=== PATIENT | female | born 1985 | race Caucasian/White ===

== ENCOUNTER 2017-05-18 15:23 | Outpatient (CLI) | payer MEDICAID ==
[~2017-05-18] VITALS: Ht 139.7 cm; Wt 60.5 kg
[2017-05-18 15:48] VITALS: BP 97/54; PULSE 94; RESP 20; Ht 139.7 cm; Wt 60.5 kg
[2017-05-18] MEDS ORDERED: LACTATED RINGER'S 1,000 ML IV ONE (16:00)
[2017-05-18] MEDS ORDERED: LACTATED RINGER'S 1,000 ML IV SCH (16:17)
--- NOTE | 2017-05-18 16:37 | HP ---
Date/Time of Note Date/Time of Note DATE: 05/18/17 TIME: 16:35 OB - History Hx of Present Free Text/Dictation 34+ : 1 Para: 0 Care: Good Care Ultrasounds: Normal mid trimester US Obstetrical Complications: None Medical Complications: None Past Family/Social History * Past Medical, Surgical, Family and Obstetric Histories reviewed from chart. OB Admission Exam Vital Signs Vital Signs Vital Signs Date Time Temp Pulse Resp B/P Pulse Ox O2 Delivery O2 Flow Rate FiO2 05/18/17 15:48 98.6 94 20 97/54 97 Room Air Physical Exam Abdomen: WNL Cervical Dilatation: None Effacement: 0% Station: Ballot[place] Membranes: Intact Heart Rate: 140's Accelerations: Accelerations Present Decelerations: No Decelerations Varibility: Marked Contractions on Admission: >10 Minutes Apart OB Assessment/Plan Reason for admission: observation Plan: Expectant Management Other plan: 24 hr observation IV HydrationType and screen KB ,CBC BPP placenta Continuous monitoring PRINCE SUGGS M.D. May 18, 2017 16:37
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
[2017-05-18 17:29] LABS: ADD SCAN DIFF NO
[2017-05-18 17:32] LABS: BASOPHILS % 0.3 % (0.0-2.0); EOSINOPHILS # 0.2 10^3/ul (0.0-0.5); HEMOGLOBIN 11.2 g/dl (12.0-16.0); LYMPHOCYTES # 2.4 10^3/ul (0.8-2.9); LYMPHOCYTES % 23.3 % (15.0-51.0); MEAN CORPUSCULAR HEMOGLOBIN 31.6 pg (29.0-33.0); MEAN CORPUSCULAR VOLUME 90.4 fl (82.0-101.0); MEAN PLATELET VOLUME 10.6 fl (7.4-10.4); MONOCYTE # 0.6 10^3/ul (0.3-0.9); MONOCYTES % 6.1 % (0.0-11.0); NEUTROPHIL # 6.9 10^3/ul (1.6-7.5); NEUTROPHILS % 67.7 % (39.0-77.0); PLATELET COUNT 282 10^3/UL (140-415); RED BLOOD COUNT 3.54 10^6/ul (4.20-5.40); RED CELL DISTRIBUTION WIDTH 12.7 % (11.5-14.5); WHITE BLOOD COUNT 10.2 10^3/ul (4.8-10.8)
[2017-05-18] MEDS ORDERED: PRENAT PO (18:13)
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
== END 2017-05-18 19:27 | disposition home or self-care (01) ==
LOC: L-D 15:23 → OBT 15:23
PROVIDERS: ATTEND Obstetrics & Gynecology
DX: O62.9 Abnormality of forces of labor, unspecified (principal); Z3A.34 34 weeks gestation of pregnancy
CPT/HCPCS: 76818; 85025; 85460; 86850; 86900; 86901; J7120; Z7500; G0463

== ENCOUNTER 2017-06-15 06:20 | Outpatient (CLI) | payer MEDICAID ==
[~2017-06-15] VITALS: Ht 147.3 cm; Wt 61.6 kg
[~2017-06-15 06:20] MED LIST: PRENAT PO
[2017-06-15 06:39] VITALS: Ht 147.3 cm; Wt 61.6 kg
[2017-06-15 06:40] VITALS: BP 100/63; PULSE 69; RESP 18
--- NOTE | 2017-06-15 09:25 | CONS ---
Date/Time of Note Date/Time of Note DATE: 06/15/17 TIME: 09:16 Consultation Date/Type/Reason Admit Date/Time June 15, 2017 OB triage consult Reason for Consultation This patient is 32 years old 1 para 0 with estimated date of confinement of June 24, 2017 which makes her 38 weeks and 5 days. She came to triage complaining of contractions since early in the morning.. On examination she is a well-developed well-nourished woman in her late . Her general vital signs are basically normal with blood pressure of 106/63, pulse rate 69, respiration 18 temperature 97.8, On examination of the abdomen ,she does not have much of a contraction, fundus is soft ,fetus in vertex presentation . heart tone is normal heart tracing is reactive with good variability occasional acceleration no deceleration. Constitutional: No chills, No diaphoresis, No disoriented, No febrile, No improved, No no complaints, No other, No poor po, No requiring IVF, No requiring O2 Eyes: No discharge, No no complaints, No other, No pain, No redness, No visual change ENT: No bleeding, No congestion, No discharge, No dysphagia, No no complaints, No other, No pain, No sore throat Respiratory: No cough, No no complaints, No other, No pain, No pleuritic pain, No shortness of breath, No sputum, No wheezing Cardiovascular: No chest pain, No edema, No lightheadedness, No no complaints, No orthopenea, No other, No palpitations, No paroxysmal nocturnal dyspnea Gastrointestinal: other (On pelvic examination there was no bleeding slight brown discharge the cervix was 2 cm 80% effaced head at -2 station membrane was intact), No blood, No constipation, No decreased appetite, No diarrhea, No flatus, No nausea, No no complaints, No pain, No passing stool, No vomiting Genitourinary: No bleeding, No discharge, No dysuria, No flank pain, No hematuria, No no complaints, No other Musculoskeletal: No back pain, No bone/joint pain, No neck pain, No no complaints, No other, No restricted range of motion, No swelling Skin: No bruising, No erythema, No laceration, No no complaints, No other, No pruritis, No rash, No skin lesions Neurologic: No confusion, No dizziness, No focal-weakness, No headache, No no complaints, No other, No seizure, No syncope Endocrine: No dry skin, No no complaints, No other, No polydypsia, No polyuria , No temp intolerance Additional Comments Patient was kept in the hospital for about 2 hours and pelvic exam was repeated after 2 hours with the same finding of 2 cm 80% and -2 station. Disposition: patient was informed that she is not in labor or at least not in active labor and she will be discharged home with instruction to rest at home and return in the delivery room in case of further contractions ,vaginal bleeding or rupture of membrane . Otherwise she will attend her building pressure washer's office for continuation of her care. Final diagnosis of false labor Social History Smoking Status: Never smoker Exam/Review of Systems Vital Signs Vitals Vital Signs Date Time Temp Pulse Resp B/P Pulse Ox O2 Delivery O2 Flow Rate FiO2 06/15/17 06:40 97.8 69 18 100/63 Room Air FAB KIM MD Jun 15, 2017 09:25
== END 2017-06-15 09:15 | disposition home or self-care (01) ==
LOC: OBT 06:20 → L-D 06:21 → OBT 09:15
PROVIDERS: ATTEND Obstetrics & Gynecology
DX: O47.1 False labor at or after 37 completed weeks of gestation (principal); Z3A.38 38 weeks gestation of pregnancy
CPT/HCPCS: G0463

== ENCOUNTER 2017-06-16 01:30 | Inpatient (IN) | payer MEDICAID ==
[~2017-06-16] VITALS: Ht 142.2 cm; Wt 60.9 kg
[2017-06-16 02:03] VITALS: Ht 142.2 cm; Wt 60.9 kg
[2017-06-16 02:05] VITALS: BP 114/68; PULSE 78; RESP 18
[2017-06-16] MEDS ORDERED: LACTATED RINGER'S 1,000 ML IV SCH (02:27)
[2017-06-16] MEDS ORDERED: BUTORPHANOL 2 MG INJ IV PRN (02:30)
[2017-06-16] MEDS ORDERED: IBUPROFEN 600 MG TAB PO PRN (02:30)
[2017-06-16] MEDS ORDERED: AMPICILLIN 2 GM/NS (PMX) 100 ML IV ONE (02:30)
[2017-06-16] MEDS ORDERED: ACETAMINOPHEN/CODEINE #3 TAB PO PRN ×3 (02:30→14:30)
[2017-06-16] MEDS ORDERED: LIDOCAINE 1% (MPF) 30 ML INJ INJ PRN (02:30)
[2017-06-16] MEDS ORDERED: METHYLERGONOVINE 0.2 MG INJ IM PRN (02:30)
[2017-06-16] MEDS ORDERED: CARBOPROST 250 MCG INJ IM PRN (02:30)
[2017-06-16] MEDS ORDERED: OXYTOCIN 30 UNITS/LR 500 ML IV PRN (02:30)
[2017-06-16] MEDS ORDERED: OXYTOCIN 30 UNITS/LR 500 ML IV SCH ×3 (02:30→08:30)
[2017-06-16] MEDS ORDERED: MISOPROSTOL 200 MCG TAB PR PRN (02:30)
--- NOTE | 2017-06-16 02:45 | HP ---
Date/Time of Note Date/Time of Note DATE: 06/16/17 TIME: 02:37 OB - History Hx of Present Free Text/Dictation 32y.o primigravida at 38w6d came to triage with c/o uterine contractions for 2days with intact membrane. VE 2cm 100% -2 with bulging bag pain level is 9/10 EFM shows U.C 2-4min with reactive strips record is not available. admitted for expectant management, Chief Complaint: U.C Estimated Due Date: Jun 15, 2017 : 2 Para: 1 Spontaneous : 0 Therapeutic : 0 Care: Other Ultrasounds: Other Obstetrical Complications: None Medical Complications: None Past Family/Social History * Past Medical, Surgical, Family and Obstetric Histories reviewed from chart. Blood Type: Unknown Rubella: unknown RPR/VDRL: Unknown GBS Status: Unknown HBsAG: Unknown OB Admission Exam Vital Signs Vital Signs Vital Signs Date Time Temp Pulse Resp B/P Pulse Ox O2 Delivery O2 Flow Rate FiO2 06/16/17 02:05 98.6 78 18 114/68 Room Air Physical Exam HEENT: WNL Heart: Rhythm Normal Lungs: Clear, Equal Abdomen: WNL Extremities: Normal Reflexes: Normal Cervical Dilatation: 2cm Effacement: 75% Station: -3 Membranes: Intact Amniotic Fluid: Unevaluable Heart Rate: 140's Accelerations: Accelerations Present Decelerations: No Decelerations Varibility: Moderate Contractions on Admission: < 5 Minutes Apart Intensity: Mild OB Assessment/Plan Other Assessment: IUP 38w6d in labor Plan: Expectant Management SWETHA MARTINEZ MD Jun 16, 2017 02:45
[2017-06-16] MEDS ORDERED: LACTATED RINGER'S 1,000 ML IV PRN (03:00)
--- NOTE | 2017-06-16 03:43 | TRIAGE ---
OB Triage Datetime Report Generated by CPN: 06/16/2017 03:43 Datetime: 06/16/2017 03:28 Pain Assessment Pain Scale: 10 Pain Presence: Intermittent Pain Type: Contraction Pain Location: Abdomen; Back Pain Goal: 2 Pain Relief Measures: Comfort Measures Datetime: 06/16/2017 02:55 Assessment Type: Admission Assessment Vaginal Bleeding: Normal Show Maternal Assessment Level of Consciousness: Fully Conscious DTR's/Clonus: DTRs 2+; No Clonus Headache: Denies Blurred Vision: No Respiratory Effort: Unlabored; Regular Rhythm; Equal Expansion Breath Sounds, Left: Clear and Equal Breath Sounds, Right: Clear and Equal Nausea/Vomiting: Denies RUQ Epigastric Pain: Denies Lower Extremities Edema: None Degree: None Upper Extremities Edema: None Degree: None Facial Edema: None Fall Risk Assessment History of Falling: (0) No Secondary Diagnosis: (0) No Ambulatory Aid: (0) Bedrest/Nurse Assist IV Therapy: (0) No Gait: (0) Normal/Bedrest/Immobile Mental Status: (0) Oriented to Own Ability Fall Score: 0 Fall Risk Score Definition: No Risk: No action required Pain Assessment Pain Scale: 10 Pain Presence: Intermittent Pain Type: Contraction Pain Location: Abdomen; Back Pain Goal: 2 Membrane Status: Bulging Datetime: 06/16/2017 02:20 Stage of : OB Triage Labor Evaluation Frequency: 2-3 Monitor Mode: External Duration (sec)2399: 90-110 Quality: Moderate Pattern: Normal: <= 5 Contractions in 10 Minutes Heart Rate FHR Baseline Rate: 140 Monitor Mode: External US FHR Baseline Changes: No Baseline Change Variability: Moderate 6-25 bpm Accelerations: 15X15 Decelerations: None Category: Category I Datetime: 06/16/2017 02:15 Stage of : OB Triage Datetime: 06/16/2017 01:55 Vaginal Exam Dilatation (cms): 2.0 Effacement (%): 100 Station: -2 Exam By: Jeremiah Sheppard RN Vaginal Bleeding: Normal Show Cervix, Consistency: Soft Cervix, Position: Anterior Datetime: 06/16/2017 01:51 Assessment Type: Triage Maternal Assessment Level of Consciousness: Fully Conscious DTR's/Clonus: DTRs 2+; No Clonus Headache: Denies Blurred Vision: No Respiratory Effort: Unlabored; Regular Rhythm; Equal Expansion Breath Sounds, Left: Clear and Equal Breath Sounds, Right: Clear and Equal Nausea/Vomiting: Denies RUQ Epigastric Pain: Denies Lower Extremities Edema: None Degree: None Upper Extremities Edema: None Degree: None Facial Edema: None Fall Risk Assessment History of Falling: (0) No Secondary Diagnosis: (0) No Ambulatory Aid: (0) Bedrest/Nurse Assist IV Therapy: (0) No Gait: (0) Normal/Bedrest/Immobile Mental Status: (0) Oriented to Own Ability Fall Score: 0 Fall Risk Score Definition: No Risk: No action required Pain Assessment Pain Scale: 9 Pain Presence: Intermittent Pain Type: Cramping; Contraction Pain Location: Abdomen Pain Goal: 3 Pain Relief Measures: Comfort Measures Pain Assessment Comments: Jeremiah Sheppard RN Datetime: 06/16/2017 01:38 Time of Arrival: 06/16/2017 01:23 EGA: 38.6 Arrived By: Wheelchair Arrived From: Home Chief Complaint: UC's X2 days (Annotations: Data stored by N on behalf of user) Movement: Present Contractions: Regular Time Contractions Began: 06/14/2017 09:00 Patient Complaints: Contractions Time Provider Notified: 06/16/2017 02:15 Provider Notified: Dr Mcclure Initial Plan: EFM X2, SVE Datetime: 06/15/2017 09:06 Labor Evaluation Frequency: 2-5 Monitor Mode: External Duration (sec)2399: 60-180 Quality: Mild Pattern: Normal: <= 5 Contractions in 10 Minutes Resting Tone [place]: Relaxed Heart Rate FHR Baseline Rate: 135 Monitor Mode: External US Variability: Moderate 6-25 bpm Accelerations: 15X15 Decelerations: None Category: Category I Datetime: 06/15/2017 09:04 Vaginal Exam Dilatation (cms): 2.0 Effacement (%): 90 Station: -3 Exam By: ogbodu rn Datetime: 06/15/2017 08:40 Maternal Assessment Level of Consciousness: Fully Conscious DTR's/Clonus: DTRs 2+; No Clonus Headache: Denies Blurred Vision: No Respiratory Effort: Unlabored; Regular Rhythm; Equal Expansion Breath Sounds, Left: Clear and Equal Breath Sounds, Right: Clear and Equal Nausea/Vomiting: Denies RUQ Epigastric Pain: Denies Lower Extremities Edema: Bilateral Lower Extremities Degree: None Upper Extremities Edema: None Degree: None Facial Edema: None Fall Risk Assessment History of Falling: (0) No Secondary Diagnosis: (0) No Ambulatory Aid: (0) Bedrest/Nurse Assist IV Therapy: (0) No Gait: (0) Normal/Bedrest/Immobile Mental Status: (0) Oriented to Own Ability Fall Score: 0 Fall Risk Score Definition: No Risk: No action required Datetime: 06/15/2017 08:04 Labor Evaluation Frequency: 3-5 Monitor Mode: External Duration (sec)2399: 60-120 Quality: Moderate Pattern: Normal: <= 5 Contractions in 10 Minutes Resting Tone [place]: Relaxed Heart Rate FHR Baseline Rate: 145 Monitor Mode: External US Variability: Moderate 6-25 bpm Accelerations: 15X15 Decelerations: None Category: Category I Comments: nst reactive for gestational age Datetime: 06/15/2017 07:00 Labor Evaluation Frequency: 2-6 Monitor Mode: External Duration (sec)2399: 50-140 Quality: Mild Pattern: Normal: <= 5 Contractions in 10 Minutes Resting Tone [place]: Relaxed Heart Rate FHR Baseline Rate: 135 Monitor Mode: External US Variability: Moderate 6-25 bpm Accelerations: 15X15 Decelerations: None Category: Category I Datetime: 06/15/2017 06:53 Vaginal Exam Dilatation (cms): 2.0 Effacement (%): 80 Station: -2 Exam By: BE Membrane Status: Bulging Vaginal Bleeding: None Cervix, Consistency: Soft Cervix, Position: Midposition Presentation 'A': Cephalic Datetime: 06/15/2017 06:37 Time of Arrival: 06/15/2017 06:15 EGA: 38.5 Arrived By: Ambulatory Arrived From: Home Chief Complaint: CONTRACTIONS Movement: Present Contractions: Regular Time Contractions Began: 06/15/2017 00:00 Contractions: Q5MIN Rupture of Membranes: Denies Vaginal Bleeding: None Vaginal Discharge: Denies Recent Sexual Intercouse: Denies Abdominal Trauma: Not Applicable Patient Complaints: Contractions Time Provider Notified: 06/15/2017 07:05 Provider Notified: MICHELLE Initial Plan: CEFM, SVE Datetime: 06/15/2017 06:36 Stage of : OB Triage Temperature Route: Oral Pain Assessment Pain Scale: 6 Pain Presence: Intermittent Pain Type: Cramping; Contraction Pain Location: Abdomen Datetime: 06/15/2017 06:34 Assessment Type: Triage Maternal Assessment Level of Consciousness: Fully Conscious DTR's/Clonus: DTRs 2+; No Clonus Headache: Denies Blurred Vision: No Respiratory Effort: Unlabored; Regular Rhythm; Equal Expansion Breath Sounds, Left: Clear and Equal Breath Sounds, Right: Clear and Equal Nausea/Vomiting: Denies RUQ Epigastric Pain: Denies Lower Extremities Edema: None Degree: None Upper Extremities Edema: None Degree: None Facial Edema: None Fall Risk Assessment History of Falling: (0) No Secondary Diagnosis: (0) No Ambulatory Aid: (0) Bedrest/Nurse Assist IV Therapy: (0) No Gait: (0) Normal/Bedrest/Immobile Mental Status: (0) Oriented to Own Ability Fall Score: 0 Fall Risk Score Definition: No Risk: No action required Datetime: 05/18/2017 16:26 EGA: 34.5
[2017-06-16 04:03] LABS: INR 0.86; PROTIME 11.7 Sec (12.2-14.2); PT RATIO 0.9
[2017-06-16 04:04] LABS: PARTIAL THROMBOPLASTIN TIME 26.6 Sec (25.0-35.0)
[2017-06-16 04:08] LABS: BASOPHILS % 0.2 % (0.0-2.0); EOSINOPHILS # 0.2 10^3/ul (0.0-0.5); HEMATOCRIT 34.9 % (37.0-47.0); HEMOGLOBIN 11.7 g/dl (12.0-16.0); LYMPHOCYTES # 2.3 10^3/ul (0.8-2.9); LYMPHOCYTES % 14.7 % (15.0-51.0); MEAN CORPUSCULAR HEMOGLOBIN 29.5 pg (29.0-33.0); MEAN CORPUSCULAR HGB CONC 33.5 g/dl (32.0-37.0); MEAN CORPUSCULAR VOLUME 87.9 fl (82.0-101.0); MEAN PLATELET VOLUME 12.2 fl (7.4-10.4); MONOCYTE # 0.9 10^3/ul (0.3-0.9); MONOCYTES % 5.8 % (0.0-11.0); NEUTROPHIL # 12.1 10^3/ul (1.6-7.5); NEUTROPHILS % 77.3 % (39.0-77.0); PLATELET COUNT 301 10^3/UL (140-415); RED BLOOD COUNT 3.97 10^6/ul (4.20-5.40); RED CELL DISTRIBUTION WIDTH 12.8 % (11.5-14.5); WHITE BLOOD COUNT 15.6 10^3/ul (4.8-10.8)
[2017-06-16 04:35] LABS: ADD UMIC YES; UR ASCORBIC ACID NEGATIVE (NEGATIVE); UR BACTERIA FEW /HPF (NONE SEEN); UR BILIRUBIN (Dip) NEGATIVE (NEGATIVE); UR BLOOD (Dip) 2+ mg/dL (NEGATIVE); UR CLARITY CLEAR (CLEAR); UR COLOR YELLOW (YELLOW); UR GLUCOSE (Dip) NEGATIVE (NEGATIVE); UR KETONES (Dip) NEGATIVE (NEGATIVE); UR LEUKOCYTE ESTERASE (Dip) TRACE Leu/ul (NEGATIVE); UR NITRITE (Dip) NEGATIVE (NEGATIVE); UR RBC 3 /HPF (0-5); UR SPECIFIC GRAVITY (Dip) 1.017 (1.003-1.030); UR SQUAMOUS EPITHELIAL CELL FEW /HPF (FEW); UR TOTAL PROTEIN (Dip) NEGATIVE (NEGATIVE); UR UROBILINOGEN (Dip) NEGATIVE (NEGATIVE)
[2017-06-16] MEDS ORDERED: AMPICILLIN 1 GM/NS (PMX) 50 ML IV SCH (06:30)
[2017-06-16] MEDS ORDERED: MINERAL OIL LIGHT 10 ML VIAL TOP ONE (11:00)
--- NOTE | 2017-06-16 12:40 | LDN ---
Date/Time of Note Date/Time of Note DATE: 06/16/17 TIME: 12:36 Delivery Summary Normal spontaneous vaginal delivery of a baby boy from OA position shoulders delivered without any difficulty rest of the baby's body follow placenta is spontaneous expulsion inspected complete patient sustained 1 cm vaginal laceration repaired with 4-0 chromic catgut estimated blood loss 250 mL Weeks of Gestation 38 weeks and 6 days Placenta Delivered: Spontaneously Meconium: none Episiotomy: No Laceration repair: Small first-degree perineal laceration 1 cm repaired with 4-0 chromic catgut Anesthesia type: Local Estimated blood loss: 25 Sponge & Needle done & correct: Yes All needle counts correct: Yes Any foreign bodies felt in the: No Problems: Delivery Information Sex Sex: male Apgars 1 Minute: 7 5 Minute: 9 Suctioning Nose & mouth suctioned at jacob: Yes Delee suction performed: No Umbilical Cord Umbilical cord with: 3 Vessels Cord presentations: nuchal cord Nuchal cord present X: 1 Cord Blood was obtained: Yes MC RUSSELL MD Jun 16, 2017 12:40
[2017-06-16 13:30] VITALS: BP 95/63; PULSE 68; RESP 16
[2017-06-16] MEDS: OXYTOCIN 30 UNITS/LR 500 ML IV SCH ×2 (14:05→18:03)
[2017-06-16] MEDS ORDERED: OXYCODONE/ASPIRIN (4.88/325) TAB PO PRN ×2 (14:30)
[2017-06-16] MEDS ORDERED: BENZOCAINE 20% 56 ML SPRAY TOP PRN (14:30)
[2017-06-16] MEDS ORDERED: LANOLIN 7 GM TUBE TOP PRN (14:30)
[2017-06-16] MEDS ORDERED: ACETAMINOPHEN 325 MG TAB PO PRN (14:30)
[2017-06-16] MEDS ORDERED: ONDANSETRON 4 MG INJ IV PRN (14:30)
[2017-06-16] MEDS ORDERED: WITCH HAZEL/GLYCERIN PAD PR PRN (14:30)
[2017-06-16] MEDS ORDERED: DIBUCAINE 1% 30 GM OINT PR PRN (14:30)
[2017-06-16 16:30] VITALS: BP 97/61; PULSE 86; RESP 16
[2017-06-16] MEDS: IBUPROFEN 600 MG TAB PO SCH (17:28)
[2017-06-16 20:00] VITALS: BP 101/60; PULSE 91; RESP 17
[2017-06-16] MEDS: SENNA/DOCUSATE NA (8.6MG/50MG) TAB PO SCH (21:09)
[2017-06-17 02:10] VITALS: BP 106/50; PULSE 86; RESP 18
[2017-06-17 04:00] VITALS: BP 105/58; PULSE 74; RESP 17
[2017-06-17] MEDS: IBUPROFEN 600 MG TAB PO SCH ×4 (05:49→18:00)
[2017-06-17 07:44] LABS: BASOPHILS % 0.3 % (0.0-2.0); EOSINOPHILS # 0.2 10^3/ul (0.0-0.5); EOSINOPHILS % 1.4 % (0.0-7.0); HEMATOCRIT 29.2 % (37.0-47.0); HEMOGLOBIN 9.6 g/dl (12.0-16.0); LYMPHOCYTES # 2.7 10^3/ul (0.8-2.9); LYMPHOCYTES % 19.6 % (15.0-51.0); MEAN CORPUSCULAR HEMOGLOBIN 29.5 pg (29.0-33.0); MEAN CORPUSCULAR HGB CONC 32.9 g/dl (32.0-37.0); MEAN CORPUSCULAR VOLUME 89.8 fl (82.0-101.0); MEAN PLATELET VOLUME 11.2 fl (7.4-10.4); MONOCYTE # 0.9 10^3/ul (0.3-0.9); MONOCYTES % 6.8 % (0.0-11.0); NEUTROPHIL # 9.9 10^3/ul (1.6-7.5); NEUTROPHILS % 71.2 % (39.0-77.0); PLATELET COUNT 247 10^3/UL (140-415); RED BLOOD COUNT 3.25 10^6/ul (4.20-5.40); RED CELL DISTRIBUTION WIDTH 13.1 % (11.5-14.5); WHITE BLOOD COUNT 13.9 10^3/ul (4.8-10.8)
[2017-06-17 08:00] VITALS: BP 97/53; PULSE 98; RESP 18
--- NOTE | 2017-06-17 08:50 | PN ---
Date/Time of Note Date/Time of Note DATE: 06/17/17 TIME: 08:49 OB Subjective Subjective Subjective Laboratory Tests Test 06/17/17 07:04 White Blood Count 13.910^3/ul Red Blood Count 3.2510^6/ul Hemoglobin 9.6g/dl Hematocrit 29.2% Mean Corpuscular Volume 89.8fl Mean Corpuscular Hemoglobin 29.5pg Mean Corpuscular Hemoglobin Concent 32.9g/dl Red Cell Distribution Width 13.1% Platelet Count 63068^3/UL Mean Platelet Volume 11.2fl Neutrophils % 71.2% Lymphocytes % 19.6% Monocytes % 6.8% Eosinophils % 1.4% Basophils % 0.3% Nucleated Red Blood Cells % 0.0/100WBC Neutrophils # 9.910^3/ul Lymphocytes # 2.710^3/ul Monocytes # 0.910^3/ul Eosinophils # 0.210^3/ul Basophils # 0.010^3/ul Nucleated Red Blood Cells # 0.010^3/ul Current Medications Medications (Trade) Dose Ordered Sig/Matthew Route PRN Reason Start Time Stop Time Status Last Admin Dose Admin Lactated Ringer's 1,000 ml @ 125 mls/hr Q8H IV 06/16/17 02:27 06/16/17 14:07 DC 06/16/17 02:48 Ampicillin 100 ml @ 100 mls/hr ONCE ONCE IV 06/16/17 02:30 06/16/17 03:29 DC 06/16/17 03:25 Ampicillin (Ampicillin 1 Gm/ NS (Pmx)) 50 ml @ 100 mls/hr Q4H IV 06/16/17 06:30 06/16/17 14:07 DC 06/16/17 07:43 Butorphanol Tartrate (Stadol) 2 mg Q2H PRN IV PAIN 06/16/17 02:30 06/16/17 14:08 DC 06/16/17 07:59 Lidocaine 30 ml 30 ml ONCE PRN INJ EPISIOTOMY/TEARING 06/16/17 02:30 06/16/17 14:08 DC Oxytocin/Lactated Ringer's 500 ml @ 125 mls/hr ONCE -MAY REPEAT X1 IV 06/16/17 02:30 06/16/17 14:08 DC Oxytocin/Lactated Ringer's 500 ml @ 125 mls/hr ONCE IV 06/16/17 02:30 06/16/17 14:08 DC 06/16/17 11:42 Ibuprofen (Motrin) 600 mg ONCE PRN PO Mild Pain (Pain Score 1-3) 06/16/17 02:30 06/16/17 14:08 DC Acetaminophen/ Codeine Phosphate 2 tab 2 tab ONCE PRN PO Moderate to Severe Pain (4-10) 06/16/17 02:30 06/16/17 14:08 DC Lactated Ringer's 1,000 ml @ 2,000 mls/hr Q30M PRN IV PRE-EPIDURAL BOLUS 06/16/17 03:00 06/16/17 14:08 DC Oxytocin/Lactated Ringer's 500 ml @ 0 mls/hr ONCE PRN IV For Hemorrhage Management 06/16/17 02:30 06/16/17 14:08 DC Methylergonovine Maleate (Methergine) 0.2 mg ONCE PRN IM VAGINAL BLEEDING 06/16/17 02:30 06/16/17 14:08 DC Carboprost Tromethamine (Hemabate) 250 mcg ONCE PRN IM VAGINAL BLEEDING 06/16/17 02:30 06/16/17 14:08 DC Misoprostol 1000 mcg 1,000 mcg ONCE PRN CO VAGINAL BLEEDING 06/16/17 02:30 06/16/17 14:08 DC Oxytocin/Lactated Ringer's 500 ml @ 0 mls/hr Q0M IV 06/16/17 08:30 06/16/17 14:08 DC 06/16/17 08:34 Mineral Oil ONCE ONCE TOP 06/16/17 11:00 06/16/17 11:01 DC Oxytocin/Lactated Ringer's 500 ml @ 125 mls/hr Q4H IV 06/16/17 14:05 06/16/17 22:04 DC Ibuprofen (Motrin) 600 mg Q6 PO 06/16/17 18:00 06/16/17 17:28 Acetaminophen (Tylenol Tab) 650 mg Q4H PRN PO PAIN LEVEL 1-5 06/16/17 14:30 Acetaminophen/ Codeine Phosphate (Tylenol No.3) 1 tab Q4H PRN PO PAIN LEVEL 1-5 06/16/17 14:30 Acetaminophen/ Codeine Phosphate (Tylenol No.3) 2 tab Q4H PRN PO PAIN LEVEL 6-10 06/16/17 14:30 Oxycodone/Aspirin (Percodan) 1 tab Q3H PRN PO PAIN LEVEL 1-5 06/16/17 14:30 Oxycodone/Aspirin (Percodan) 2 tab Q3H PRN PO PAIN LEVEL 6-10 06/16/17 14:30 Ondansetron HCl (Zofran Inj) 4 mg Q6H PRN IV NAUSEA AND/OR VOMITING 06/16/17 14:30 Senna/Docusate Sodium (Senokot-S) 1 tab BID PO 06/16/17 21:00 06/16/17 21:09 Witch Natasha/ Glycerin (Tucks Pads) 1 pad BEDSIDE MEDICATION PRN CO HEMORRHOID/EPISIOTMY PAIN 06/16/17 14:30 06/16/17 17:27 Benzocaine (Dermoplast [place]) 1 spray BEDSIDE MEDICATION PRN TOP HEMORRHOID/EPISIOTMY PAIN 06/16/17 14:30 06/16/17 17:27 Dibucaine (Nupercainal) 1 applic BEDSIDE MEDICATION PRN CO HEMORRHOID/EPISIOTMY PAIN 06/16/17 14:30 Lanolin ([id number]) 1 applic BEDSIDE MEDICATION PRN TOP BEDSIDE FOR JESS TO NIPPLES 06/16/17 14:30 06/16/17 17:27 Measles/Mumps/ Rubella Vaccine Live (Mmr Ii Vaccine) 0.5 ml ONCE ONCE SC* 06/18/17 09:00 06/18/17 09:01 day 1 Afebrile vital signs are stable abdomen soft uterus firm, lochia normal extremity normal ambulation encouraged MC RUSSELL MD Jun 17, 2017 08:50
[2017-06-17] MEDS: SENNA/DOCUSATE NA (8.6MG/50MG) TAB PO SCH ×2 (09:00→21:00)
[2017-06-17 17:16] VITALS: BP 96/55; PULSE 79; RESP 18
[2017-06-17 19:40] VITALS: BP 102/64; PULSE 64; RESP 17
[2017-06-18 04:00] VITALS: BP 100/65; PULSE 78; RESP 17
[2017-06-18] MEDS: IBUPROFEN 600 MG TAB PO SCH ×3 (05:35→12:00)
[2017-06-18] MEDS: SENNA/DOCUSATE NA (8.6MG/50MG) TAB PO SCH (09:00)
[2017-06-18] MEDS ORDERED: MEASLES,MUMPS,RUBELLA VACCINE INJ SC* ONE (09:00)
--- NOTE | 2017-06-18 10:04 | PD.PPDC ---
WAREHOUSE AND RECEIVING SUPERVISOR Discharge Instruction Condition Patient Condition: Good Diet Diet: Resume Regular Diet Activity/Restrictions Activity: Normal Activity May Shower Restrictions: No Exercising No Lifting No Driving No Sexual Activity Nothing in the Vagina No [place] No Tampons, douche Follow-up Follow-up with Physician: 2, Week/Weeks Provider Information: Appointment clinic in 2 weeks for check Return to clinic for ROUTE MANAGER Instructions: Fever greater than 101 Chills Worsening abdominal pain Excessive Vaginal Bleeding More than 2 pads per hour Unable to tolerate diet OB Instructions: Breast Tenderness Depression Blurried Vision Headache MC RUSSELL MD Jun 18, 2017 10:04
--- NOTE | 2017-06-18 10:08 | DS ---
Date/Time of Note Date/Time of Note DATE: 06/18/17 TIME: 10:06 Discharge Summary Admission/Discharge Info Admit Date/Time Jun 16, 2017 at 02:30 Discharge Date/Time June 18, 2017 at 10 Discharge Diagnosis Normal vaginal delivery day 2 Patient Condition: Good Procedures Normal vaginal delivery Hx of Present Illness Term in labor Hospital Course Satisfactory uneventful Home Meds Reported Medications Multivit/Min/Fol Ac/Iron/Pren* ( S*) 1 Tab Tab, 1 TAB PO DAILY, TAB 05/18/17 Follow-up Plan instructions given recommended to make appointment to be seen at the clinic in 2 weeks Primary Care Provider Care Physician No Primary Time spent on discharge: < 30 minutes MC RUSSELL MD Jun 18, 2017 10:08
[2017-06-18 10:48] VITALS: BP 108/60; PULSE 75; RESP 18
== END 2017-06-18 15:09 | disposition home or self-care (01) | DRG 775 ==
LOC: OBT 01:30 → L-D 01:31 → OBT 02:30 → PP1 13:45
PROVIDERS: ADMIT Obstetrics & Gynecology; ATTEND Obstetrics & Gynecology
PROC: 10E0XZZ Delivery of Products of Conception, External Approach (ICD-10-PCS; principal; 2017-06-16)
PROC: 0HQ9XZZ Repair Perineum Skin, External Approach (ICD-10-PCS; 2017-06-16)
PROC: 4A1HX4Z Monitoring of Products of Conception, Cardiac Electrical Activity, External Approach (ICD-10-PCS; 2017-06-16)
DX: O70.0 First degree perineal laceration during delivery (principal); Z37.0 Single live birth; Z3A.38 38 weeks gestation of pregnancy
CPT/HCPCS: 81001; 85025; 85610; 85730; 86592; 86900; 86901; 99464; G0463; J0290; J0595; J2590; J7120

== ENCOUNTER 2019-06-15 11:58 | Inpatient (IN) | payer MEDICAID ==
[~2019-06-15] VITALS: Ht 149.9 cm; Wt 61.9 kg
[~2019-06-15 11:58] MED LIST changes: +CIPR500T4 PO
--- NOTE | 2019-06-15 12:08 | ERD ---
ER Documentation Chief Complaint Chief Complaint FEVER HPI The patient is a 34-year-old female, presenting to the ER because of fever that began this morning, vomited twice of mostly mucus, denies chills, nasal congestion, cough, sore throat, neck pain, chest pain, dyspnea, abdominal pain, vomiting, dysuria. She does not smoke nor drink or use illicit drug Past medical/surgical history: None ROS All systems reviewed and are negative except as per history of present illness. Medications Home Meds Discontinued Reported Medications Multivit/Min/Fol Ac/Iron/Pren* ( S*) 1 Tab Tab, 1 TAB PO DAILY, TAB 05/18/17 Allergies Allergies: Coded Allergies: No Known Drug Allergies (Verified Allergy, Unknown, 06/15/19) Physical Exam Vitals Vital Signs Date Temp Pulse Resp B/P (MAP) Pulse Ox O2 O2 Flow FiO2 Time Delivery Rate 06/15/19 100.0 101 18 92/65 (74) 98 Room Air 13:24 06/15/19 101.7 12:28 06/15/19 101.7 158 24 88/50 (63) 95 12:00 Physical Exam Const: No acute distress. Head: Atraumatic. Eyes: Normal Conjunctiva. ENT: Normal External Ears, Nose and Mouth. Bilateral tympanic membranes/oropharynx are within normal limits Neck: Full range of motion. No meningismus. Resp: Clear to auscultation bilaterally. Cardio: Regular tachycardic Abd: Soft, non distended, normal bowel sounds, non tender. Skin: No petechiae or rashes. Back: No midline or flank tenderness. Ext: No cyanosis, or edema. Neur: Awake and alert. No focal deficit Psych: Normal Mood and Affect. Result Diagram: 06/15/19 1217 06/15/19 1217 Results 24 hrs Laboratory Tests Test 06/15/19 12:17 06/15/19 12:20 06/15/19 13:26 06/15/19 13:28 White Blood Count 11.4 10^3/ul Red Blood Count 4.52 10^6/ul Hemoglobin 13.5 g/dl Hematocrit 39.7 % Mean Corpuscular 87.8 fl Volume Mean Corpuscular 29.9 pg Hemoglobin Mean Corpuscular 34.0 g/dl Hemoglobin Concent Red Cell Distribution 12.2 % Width Platelet Count 238 10^3/UL Mean Platelet Volume 10.2 fl Immature Granulocytes 0.600 % % Neutrophils % 80.9 % Lymphocytes % 14.4 % Monocytes % 2.5 % Eosinophils % 1.2 % Basophils % 0.4 % Nucleated Red Blood 0.0 /100WBC Cells % Immature Granulocytes 0.070 10^3/ul # Neutrophils # 9.2 10^3/ul Lymphocytes # 1.6 10^3/ul Monocytes # 0.3 10^3/ul Eosinophils # 0.1 10^3/ul Basophils # 0.1 10^3/ul Nucleated Red Blood 0.0 10^3/ul Cells # Prothrombin Time 12.8 Sec Prothrombin Time Ratio 1.0 INR International 0.95 Normalized Ratio Activated 26.1 Sec Partial Thromboplast Time Sodium Level 140 mmol/L Potassium Level 3.5 mmol/L Chloride Level 106 mmol/L Carbon Dioxide Level 20 mmol/L Anion Gap 14 Blood Urea Nitrogen 13 mg/dl Creatinine 0.67 mg/dl Est Glomerular Filtrat > 60 mL/min Rate mL/min Glucose Level 145 mg/dl Calcium Level 9.6 mg/dl Total Bilirubin 0.8 mg/dl Direct Bilirubin 0.00 mg/dl Indirect Bilirubin 0.8 mg/dl Aspartate Amino 64 IU/L Transf (AST/SGOT) Alanine 50 IU/L Aminotransferase (ALT/ SGPT) Alkaline Phosphatase 124 IU/L Troponin I < 0.012 ng/ml Total Protein 8.4 g/dl Albumin 4.5 g/dl Globulin 3.90 g/dl Albumin/Globulin Ratio 1.15 POC Venous Lactate 2.6 mmol/L Bedside Urine pH (LAB) 6.5 Bedside Urine Protein 1+ (LAB) Bedside Urine Glucose Negative (UA) Bedside Urine Ketones Negative (LAB) Bedside Urine Blood 1+ Bedside Urine Nitrite Positive (LAB) Bedside Urine 1+ Leukocyte Esterase (L POC Beta HCG, NEGATIVE Qualitative Current Medications Medications Dose Sig/Matthew Start Time Status Last (Trade) Ordered Route PRN Stop Time Admin Dose Reason Admin Sodium 1,760 ml BOLUS OVER 2 06/15/19 DC 06/15/19 Chloride HOURS STAT 12:09 06/15/19 12:27 (NS) IV* 12:10 650 mg ONCE ONCE 06/15/19 DC 06/15/19 Acetaminophen PO 12:30 06/15/19 12:28 (Tylenol 12:31 Tab) Ceftriaxone 50 ml @ ONCE ONCE 06/15/19 DC 06/15/19 Sodium 100 mls/hr IVPB 12:30 06/15/19 12:30 12:59 Procedures/MDM [place] [address] Radiology Main Line: [phone] DIAGNOSTIC IMAGING REPORT Patient: REUBEN BARRAZA : 1985 Age: 34 Sex: F MR #: [id number] DOS: 06/15/19 1209 Ordering MD: ALANNA MORALES MD Location: E/R Room/Bed: PROCEDURE: XR Chest. CLINICAL INDICATION: Sepsis TECHNIQUE: AP view of the chest was obtained. COMPARISON: None. FINDINGS: The cardiomediastinal silhouette is within normal limits. The lungs appear clear. No pleural effusion or pneumothorax is identified. IMPRESSION: No active cardiopulmonary disease identified. RPTAT: VV .Max Kelley MD, MD Date Time Electronically viewed and signed by .Max Kelley MD, MD on 06/15/2019 12:28 .O/ CC: ALANNA MORALES MD [phone] EKG: Read by emergency physician Rate/Rhythm: Sinus tachycardia 107 beats/min QRS, ST, T-waves: No ST elevation, no T inversion, PSVC Impression: Abnormal EKG MEDICAL MAKING DECISION: The patient is presenting with acute severe sepsis, acute cystitis She was treated with Tylenol 650 mg p.o. for fever, normosaline 30 mm/kg IV and Rocephin IV for acute severe sepsis due to acute cystitis with good response The differential diagnoses considered include but are not limited to cystitis, pyelonephritis, pneumonia MDM: Patient's infectious symptoms have not stabilized and the patient is at risk of rapid decompensation. The patient will be admitted for careful hydration, an tibiotic therapy, and infectious source control. SEVERE SEPSIS CRITERIA: Infectious source: uti End organ damage indicated by: [Lactate > 2.0 mmol/L Hypotension (SBP < 90 or >40 mmHG drop or MAP < 65) SEPSIS MANAGEMENT Time of recognition of severe sepsis: 12:25p 3 HOUR BUNDLE Blood cultures x 2 before broad-spectrum antibiotics: [Yes] 30 ml/kg NS bolus [Completed] Initial lactate []2.6 Repeat lactate Pending SEPTIC SHOCK ASSESSMENT: [No] lactic acid > 4.0 [No] Persistent hypotension (SBP < 90 or 40 mmHg drop, MAP < 65) despite 30 mL/kg IV fluid bolus CRITICAL CARE Critical care time [35] minutes Emergent fluid management while maintaining close respiratory support. Provision of immediate and broad-spectrum antibiotic therapy. Simultaneous assessment for possible sources in order to direct targeted therapy. Consideration for invasive and chemical support to prevent cardiopulmonary collapse. Critical care time is independent of procedures performed. Departure Diagnosis: Primary Impression: Severe sepsis Additional Impressions: UTI (urinary tract infection) Dehydration Condition: Stable Comments I discussed the findings with the patient. I notified the patient with Dr. Tadeo at 1:45p via [place], who was made aware of the lab, the treatment, the patient condition. The patient is admitted to [facility] Disclaimer: Inadvertent spelling and grammatical errors are likely due to EHR/dictation software use and do not reflect on the overall quality of patient care. Also, please note that the electronic time recorded on this note does not necessarily reflect the actual time of the patient encounter. ALANNA MORALES MD Jun 15, 2019 12:08
[2019-06-15] MEDS ORDERED: SODIUM CHLORIDE 0.9% 1L BAG IV* STA (12:09)
[2019-06-15] MEDS ORDERED: CEFTRIAXONE 1 GM/50 ML (PMX) 50 ML IVPB ONE (12:30)
[2019-06-15] MEDS ORDERED: ACETAMINOPHEN 325 MG TAB PO ONE (12:30)
[2019-06-15] MEDS ORDERED: SOD CHLORIDE 0.9% 1,000 ML IV ONE (15:30)
[2019-06-15] MEDS: SOD CHLORIDE 0.9% 1,000 ML IV SCH (16:45)
[2019-06-15] MEDS ORDERED: morphine 2 MG INJ IV PRN (17:00)
[2019-06-15] MEDS ORDERED: HYDROCODONE/APAP (5/325) TAB PO PRN (17:00)
[2019-06-15] MEDS ORDERED: SODIUM CHLORIDE 0.9% 1L BAG IV SCH (17:00)
[2019-06-15] MEDS ORDERED: MAGNESIUM HYDROXIDE 30ML CUP PO PRN (17:00)
[2019-06-15] MEDS ORDERED: ONDANSETRON 4 MG INJ IV PRN (17:00)
[2019-06-15] MEDS ORDERED: BISACODYL 10 MG SUPP PR PRN (17:00)
[2019-06-15] MEDS ORDERED: NACL 0.9% 3 ML SYG IV SCH (17:00)
[2019-06-15] MEDS ORDERED: ACETAMINOPHEN 325 MG TAB PO PRN (17:00)
[2019-06-15] MEDS ORDERED: DOCUSATE SODIUM 100 MG CAP PO PRN (17:00)
[2019-06-15] MEDS ORDERED: BISACODYL (EC) 5 MG TAB PO PRN (17:00)
--- NOTE | 2019-06-15 18:24 | HP ---
Date/Time of Note Date/Time of Note DATE: 06/15/19 TIME: 18:17 Assessment/Plan VTE Prophylaxis SCD contraindicated: low risk/ambulating Pharmacological prophylaxis: NA/contraindicated Pharm contraindication: low risk/ambulating Lines/Catheters IV Catheter Type (from Nrs): [place] Assessment/Plan Hospital Course Chief complaint Fever History present illness 34-year-old female who presents from home without any symptoms except for the last 24 hours, has had fever, weakness, and nausea. No known aggravating or relieving factors. May have some right ear pain. May have some right back pain. Denies any injury headaches loss of speech or vision. No neck stiffness. ambulation and appetite have been fine. Denies any keaton abdominal pain dysuria. No ill contacts, ill foods, or recent travel. No recent surgeries ER: Fever low blood pressure Past medical history Overweight Past surgical history None Social history No tobacco alcohol unemployed FH No history of early coronary disease cancer stroke positive diabetes Home medications None Review of systems Neuro: No headache no loss speech/ vision Cardia vascular: No chest pain no dyspnea no edema Lungs: No cough no wheezing. + fever Abdomen: No pain positive nausea no vomiting no diarrhea Genitourinary: No dysuria hematuria. positive fever Musculoskeletal: No gait dysfunction rash itching no edema Constitutional: Fever chills? No Reiger Psychiatry: Patient has a stable mood without any active agitation anxiety depression Hematologic; no hematochezia melena hematuria Endocrine: No previous diabetes thyroid dysfunction or dyslipidemia Physical exam No pallor adenopathy or sinus tenderness ears fairly clean minimal wax Regular no murmur gallop Clear Bs + nt nd no r/r/g; overweight. no appreciated cvat No edema/Homans Assessment and plan 1. Suspected severe sepsis with hypovolemia, stable cont fluids empiric antibiotics 2. Acute cystitis/pyelonephritis? Follow-up on cultures 3. Anemia 4. Obesity disorder Result Diagram: 06/15/19 1217 06/15/19 1217 Results 24hrs Laboratory Tests Test 06/15/19 12:17 06/15/19 12:20 06/15/19 13:23 06/15/19 13:26 White Blood Count 11.4 H Red Blood Count 4.52 # Hemoglobin 13.5 # Hematocrit 39.7 # Mean Corpuscular 87.8 Volume Mean Corpuscular 29.9 Hemoglobin Mean Corpuscular 34.0 Hemoglobin Concent Red Cell 12.2 Distribution Width Platelet Count 238 Mean Platelet 10.2 Volume Immature 0.600 H Granulocytes % Neutrophils % 80.9 H Lymphocytes % 14.4 L Monocytes % 2.5 Eosinophils % 1.2 Basophils % 0.4 Nucleated Red 0.0 Blood Cells % Immature 0.070 H Granulocytes # Neutrophils # 9.2 H Lymphocytes # 1.6 Monocytes # 0.3 Eosinophils # 0.1 Basophils # 0.1 Nucleated Red 0.0 Blood Cells # Prothrombin Time 12.8 Prothrombin Time 1.0 Ratio INR International 0.95 Normalized Ratio Activated 26.[address] Time Sodium Level 140 Potassium Level 3.5 Chloride Level 106 Carbon Dioxide 20 L Level Anion Gap 14 H Blood Urea 13 Nitrogen Creatinine 0.67 Est Glomerular > 60 Filtrat Rate mL/min Glucose Level 145 Calcium Level 9.6 Total Bilirubin 0.8 Direct Bilirubin 0.00 Indirect Bilirubin 0.8 Aspartate Amino 64 H Transf (AST/SGOT) Alanine 50 Aminotransferase ( ALT/SGPT) Alkaline 124 H Phosphatase Troponin I < 0.012 Total Protein 8.4 H Albumin 4.5 Globulin 3.90 H Albumin/Globulin 1.15 Ratio POC Venous Lactate 2.6 *H Urine Color YELLOW Urine Clarity SLIGHTLY CLOUDY A Urine pH 6.0 Urine Specific 1.012 [place] Urine Ketones NEGATIVE Urine Nitrite NEGATIVE Urine Bilirubin NEGATIVE Urine Urobilinogen NEGATIVE Urine Leukocyte 1+ H Esterase Urine Microscopic 4 RBC Urine Microscopic 58 H WBC Urine Squamous FEW Epithelial Cells Urine Bacteria FEW A Urine Mucus FEW A Urine Hemoglobin 1+ H Urine Glucose NEGATIVE Urine Total 1+ H Protein Bedside Urine pH 6.5 (LAB) Bedside Urine 1+ H Protein (LAB) Bedside Urine Negative Glucose (UA) Bedside Urine Negative Ketones (LAB) Bedside Urine 1+ H Blood Bedside Urine Positive H Nitrite (LAB) Bedside Urine 1+ H Leukocyte Esterase (L Test 06/15/19 13:28 06/15/19 15:10 06/15/19 17:50 POC Beta HCG, NEGATIVE Qualitative Lactic Acid Level 1.1 1.0 HPI/ROS Admit Date/Time Admit Date/Time PMH/Family/Social Past Medical History Medications Current Medications Sodium Chloride 1,000 ml @ 125 mls/hr Q8H IV Last administered on 06/15/19at 16: 45; Admin Dose 125 MLS/HR; Start 06/15/19 at 16:35 IV Flush (NS 3 ml) 3 ml PER PROTOCOL IV ; Start 06/15/19 at 17:00 Ondansetron HCl (Zofran Inj) 4 mg Q6H PRN IV NAUSEA/VOMITING; Start 06/15/19 at 17:00 Acetaminophen (Tylenol Tab) 650 mg Q6H PRN PO .PAIN 1-3 OR TEMP; Start 06/15/19 at 17:00 Acetaminophen/ Hydrocodone Bitart ([place] (5/325)) 1 tab Q6H PRN PO .MOD PAIN 4- 6; Start 06/15/19 at 17:00 Morphine Sulfate (morphine) 2 mg Q4H PRN IV .SEVERE PAIN 7-10; Start 06/15/19 at 17:00 Docusate Sodium (Colace) 100 mg Q12H PRN PO .CONSTIPATION; Start 06/15/19 at 17:00 Magnesium Hydroxide (Milk Of Mag) 30 ml DAILY PRN PO .CONSTIPATION; Start 06/15/19 at 17:00 Bisacodyl (Dulcolax) 5 mg DAILY PRN PO .CONSTIPATION; Start 06/15/19 at 17:00 Bisacodyl (Dulcolax Supp) 10 mg DAILY PRN [place] .CONSTIPATION; Start 06/15/19 at 17:00 Ceftriaxone Sodium 50 ml @ 100 mls/hr Q24H IVPB ; Start 06/16/19 at 12:30 Coded Allergies: No Known Drug Allergies (Verified Allergy, Unknown, 06/15/19) Social History Smoking Status: Never smoker Exam/Review of Systems Vital Signs Vitals Vital Signs Date Temp Pulse Resp B/P (MAP) Pulse Ox O2 O2 Flow FiO2 Time Delivery Rate 06/15/19 98.1 16:01 06/15/19 94 15 94/63 (73) 96 Room Air 15:00 MARIELA SALDANA MD Jun 15, 2019 18:24
[2019-06-15] MEDS ORDERED: SOD CHLORIDE 0.9% 500 ML IV ONE (22:00)
[2019-06-15 22:15] VITALS: Ht 149.9 cm; Wt 61.9 kg
[2019-06-16] VITALS (7 sets, daily range): BP systolic 89–110; BP diastolic 53–76; PULSE 72–124; RESP 18–19
[2019-06-16] MEDS: SOD CHLORIDE 0.9% 1,000 ML IV SCH ×2 (00:57→12:42)
[2019-06-16] MEDS ORDERED: CEFTRIAXONE 2 GM/50 ML (PMX) 50 ML IVPB SCH (12:30)
--- NOTE | 2019-06-16 16:17 | PN ---
Date/Time of Note Date/Time of Note DATE: 06/16/19 TIME: 16:16 Assessment/Plan VTE Prophylaxis Risk score (from Ns)>0 risk: 0 SCD applied (from [facility] [place] No SCD contraindicated: low risk/ambulating Pharmacological prophylaxis: NA/contraindicated Pharm contraindication: low risk/ambulating Lines/Catheters IV [facility] (from [facility] Peripheral IV Assessment/Plan Hospital Course Assessment and plan 1. Suspected severe sepsis with hypovolemia, stable cont fluids empiric antibiotics 2. Acute cystitis/pyelonephritis? Follow-up on cultures 3. Anemia 4. Obesity disorder S: No distress wants to go home. no dizziness dysuria O: Systolic in the low 90s Pe No pallor or sinus tenderness Regular no murmur gallop Clear Bs + nt nd no r/r/g; overweight. no appreciated cvat No edema/Homans No neck rigidity ot Kernig's/ Brudzinski sign Result Diagram: 06/16/19 0517 06/16/19 0517 Results 24hrs Laboratory Tests Test 06/15/19 17:49 06/15/19 17:50 06/16/19 05:17 Procalcitonin 16.87 H Lactic Acid Level 1.0 White Blood Count 11.6 H Red Blood Count 3.70 L Hemoglobin 10.9 L Hematocrit 33.4 L Mean Corpuscular Volume 90.3 Mean Corpuscular Hemoglobin 29.5 Mean Corpuscular Hemoglobin Concent 32.6 Red Cell Distribution Width 12.6 Platelet Count 209 Mean Platelet Volume 10.7 H Immature Granulocytes % 0.400 Neutrophils % 66.7 Lymphocytes % 21.9 Monocytes % 9.2 Eosinophils % 1.4 Basophils % 0.4 Nucleated Red Blood Cells % 0.0 Immature Granulocytes # 0.050 H Neutrophils # 7.7 H Lymphocytes # 2.5 Monocytes # 1.1 H Eosinophils # 0.2 Basophils # 0.1 Nucleated Red Blood Cells # 0.0 Sodium Level 143 Potassium Level 3.7 Chloride Level 113 H Carbon Dioxide Level 23 Anion Gap 7 Blood Urea Nitrogen 4 #L Creatinine 0.40 L Est Glomerular Filtrat Rate mL/min > 60 Glucose Level 101 # Hemoglobin A1c 5.1 Calcium Level 8.4 Magnesium Level 2.0 Total Bilirubin 0.5 Direct Bilirubin 0.00 Indirect Bilirubin 0.5 Aspartate Amino Transf (AST/SGOT) 45 Alanine Aminotransferase (ALT/SGPT) 60 Alkaline Phosphatase 78 Total Protein 6.4 # Albumin 3.3 # Globulin 3.10 Albumin/Globulin Ratio 1.06 Thyroid Stimulating Hormone (TSH) 0.728 Exam/Review of Systems Exam Vitals Vital Signs Date Temp Pulse Resp B/P (MAP) Pulse Ox O2 O2 Flow FiO2 Time Delivery Rate 06/16/19 98.0 90 18 98/56 (70) 98 15:53 06/16/19 Room Air 03:37 Intake and Output 06/15/19 06/15/19 06/16/19 1515:00 23:00 07:00 IntakeIntake Total 240 ml BalanceBalance 240 ml Results Results 24hrs Laboratory Tests Test 06/15/19 17:49 06/15/19 17:50 06/16/19 05:17 Procalcitonin 16.87 H Lactic Acid Level 1.0 White Blood Count 11.6 H Red Blood Count 3.70 L Hemoglobin 10.9 L Hematocrit 33.4 L Mean Corpuscular Volume 90.3 Mean Corpuscular Hemoglobin 29.5 Mean Corpuscular Hemoglobin Concent 32.6 Red Cell Distribution Width 12.6 Platelet Count 209 Mean Platelet Volume 10.7 H Immature Granulocytes % 0.400 Neutrophils % 66.7 Lymphocytes % 21.9 Monocytes % 9.2 Eosinophils % 1.4 Basophils % 0.4 Nucleated Red Blood Cells % 0.0 Immature Granulocytes # 0.050 H Neutrophils # 7.7 H Lymphocytes # 2.5 Monocytes # 1.1 H Eosinophils # 0.2 Basophils # 0.1 Nucleated Red Blood Cells # 0.0 Sodium Level 143 Potassium Level 3.7 Chloride Level 113 H Carbon Dioxide Level 23 Anion Gap 7 Blood Urea Nitrogen 4 #L Creatinine 0.40 L Est Glomerular Filtrat Rate mL/min > 60 Glucose Level 101 # Hemoglobin A1c 5.1 Calcium Level 8.4 Magnesium Level 2.0 Total Bilirubin 0.5 Direct Bilirubin 0.00 Indirect Bilirubin 0.5 Aspartate Amino Transf (AST/SGOT) 45 Alanine Aminotransferase (ALT/SGPT) 60 Alkaline Phosphatase 78 Total Protein 6.4 # Albumin 3.3 # Globulin 3.10 Albumin/Globulin Ratio 1.06 Thyroid Stimulating Hormone (TSH) 0.728 Medications Medication Current Medications Sodium Chloride 1,000 ml @ 100 mls/hr Q10H IV Last administered on 06/16/19at 12:42; Admin Dose 100 MLS/HR; Start 06/15/19 at 16:35 IV Flush (NS 3 ml) 3 ml PER PROTOCOL IV ; Start 06/15/19 at 17:00 Ondansetron HCl (Zofran Inj) 4 mg Q6H PRN IV NAUSEA/VOMITING; Start 06/15/19 at 17:00 Acetaminophen (Tylenol Tab) 650 mg Q6H PRN PO .PAIN 1-3 OR TEMP; Start 06/15/19 at 17:00 Acetaminophen/ Hydrocodone Bitart ([place] (5/325)) 1 tab Q6H PRN PO .MOD PAIN 4- 6; Start 06/15/19 at 17:00 Morphine Sulfate (morphine) 2 mg Q4H PRN IV .SEVERE PAIN 7-10; Start 06/15/19 at 17:00 Docusate Sodium (Colace) 100 mg Q12H PRN PO .CONSTIPATION; Start 06/15/19 at 17:00 Magnesium Hydroxide (Milk Of Mag) 30 ml DAILY PRN PO .CONSTIPATION; Start 06/15/19 at 17:00 Bisacodyl (Dulcolax) 5 mg DAILY PRN PO .CONSTIPATION; Start 06/15/19 at 17:00 Bisacodyl (Dulcolax Supp) 10 mg DAILY PRN [place] .CONSTIPATION; Start 06/15/19 at 17:00 Ceftriaxone Sodium 50 ml @ 100 mls/hr Q24H IVPB Last administered on 06/16/19at 12:38; Admin Dose 100 MLS/HR; Start 06/16/19 at 12:30 MARIELA SALDANA MD Jun 16, 2019 16:17
[2019-06-16] MEDS ORDERED: SOD CHLORIDE 0.9% 500 ML IV ONE (16:30)
--- NOTE | 2019-06-16 17:39 | PDOCDIS ---
Discharge Instructions CONDITION [id number] Patient Condition: [id number] Stable HOME CARE INSTRUCTIONS: [id number] Diet Instructions: [id number] Regular ACTIVITY: [id number] Activity Restrictions: [id number] Slowly Increase Activity Avoid heavy lifting FOLLOW UP/APPOINTMENTS Follow-up Plan appt Primary 2-4days. and ask PCP to call Medical records [phone] for discharge summary MARIELA SALDANA MD Jun 16, 2019 17:39
--- NOTE | 2019-06-16 17:42 | DS ---
Date/Time of Note Date/Time of Note DATE: 06/16/19 TIME: 17:40 Discharge Summary Admission/Discharge Info Admit Date/Time Jun 15, 2019 at 21:14 Discharge Date/Time Patient Condition: Stable Procedures cxr- neg Hx of Present Illness admitted w severe sepsis. Hospital Course H Course 1. Severe sepsis with hypovolemia, stable dc home on empiric cipro 2. Acute cystitis/pyelonephritis? Follow-up on cultures [phone] 3. Anemia 4. Obesity disorder S: No distress wants to go home. no dizziness dysuria O: Systolic in the low 90s; now improved & orthostatics are negative Pe No pallor or sinus tenderness Regular no murmur gallop Clear Bs + nt nd no r/r/g; overweight. no appreciated cvat No edema/Homans No neck rigidity ot Calvin's/ Sushant sign Home Meds Active Scripts Ciprofloxacin Hcl* (Ciprofloxacin Hcl*) 500 Mg Tablet, 500 MG PO BID@,18 for 7 Days, #14 TAB Prov:MARIELA SALDANA MD 06/16/19 Discontinued Reported Medications Multivit/Min/Fol Ac/Iron/Pren* ( S*) 1 Tab Tab, 1 TAB PO DAILY, TAB 05/18/17 Follow-up Plan appt Primary 2-4days. and ask PCP to call Medical records [phone] for discharge summary Primary Care Provider Care Physician No Primary Time spent on discharge: < 30 minutes Pending Labs Laboratory Tests Test 06/15/19 17:49 06/15/19 17:50 06/16/19 05:17 Procalcitonin 16.87 ng/mL (0.00-0.10) Lactic Acid Level 1.0 mmol/L (0.5-2.0) White Blood Count 11.6 10^3/ul (4.8-10.8) Red Blood Count 3.70 10^6/ul (4.20-5.40 ) Hemoglobin 10.9 g/dl (12.0-16.0) Hematocrit 33.4 % (37.0-47.0) Mean Corpuscular 90.3 Volume fl (82.0-101.0) Mean Corpuscular 29.5 Hemoglobin pg (29.0-33.0) Mean Corpuscular 32.6 Hemoglobin Concent g/dl (32.0-37.0) Red Cell 12.6 % (11.5-14.5) Distribution Width Platelet Count 209 10^3/UL (140-415) Mean Platelet 10.7 fl (7.4-10.4) Volume Immature 0.400 Granulocytes % % (0.001-0.429) Neutrophils % 66.7 % (39.0-77.0) Lymphocytes % 21.9 % (15.0-51.0) Monocytes % 9.2 % (0.0-11.0) Eosinophils % 1.4 % (0.0-7.0) Basophils % 0.4 % (0.0-2.0) Nucleated Red Blood 0.0 Cells % /100WBC (0.0-0.0) Immature 0.050 Granulocytes # 10^3/ul (0.0-0.031 ) Neutrophils # 7.7 10^3/ul (1.6-7.5) Lymphocytes # 2.5 10^3/ul (0.8-2.9) Monocytes # 1.1 10^3/ul (0.3-0.9) Eosinophils # 0.2 10^3/ul (0.0-0.5) Basophils # 0.1 10^3/ul (0.0-0.1) Nucleated Red Blood 0.0 Cells # 10^3/ul (0.0-0.0) Sodium Level 143 mmol/L (135-144) Potassium Level 3.7 mmol/L (3.5-5.1) Chloride Level 113 mmol/L (97-110) Carbon Dioxide 23 mmol/L (21-31) Level Anion Gap 7 (5-13) Blood Urea Nitrogen 4 mg/dl (7-20) Creatinine 0.40 mg/dl (0.44-1.00) Est Glomerular > 60 mL/min (>60) Filtrat Rate mL/min Glucose Level 101 mg/dl (70-220) Hemoglobin A1c 5.1 % (0-5.9) Calcium Level 8.4 mg/dl (8.4-10.2) Magnesium Level 2.0 mg/dl (1.7-2.5) Total Bilirubin 0.5 mg/dl (0.2-1.3) Direct Bilirubin 0.00 mg/dl (0.00-0.20) Indirect Bilirubin 0.5 mg/dl (0-1.1) Aspartate Amino 45 IU/L (15-46) Transf (AST/SGOT) Alanine 60 IU/L (13-69) Aminotransferase (A LT/SGPT) Alkaline 78 IU/L (42-121) Phosphatase Total Protein 6.4 g/dl (6.1-8.1) Albumin 3.3 g/dl (3.3-4.9) Globulin 3.10 g/dl (1.3-3.2) Albumin/Globulin 1.06 Ratio Thyroid Stimulating 0.728 Hormone (TSH) MIU/L (0.465-4.680 ) MARIELA SALDANA MD Jun 16, 2019 17:42
[2019-06-16] MEDS ORDERED: CIPROFLOXACIN 500 MG TAB PO SCH (18:00)
[2019-06-23] MEDS ORDERED: PROPOFOL 0 ML ONE (17:45)
[2019-06-23] MEDS ORDERED: MIDAZOLAM 1 MG/ML 2 ML INJ ONE (17:46)
== END 2019-06-16 18:28 | disposition home or self-care (01) | DRG 872 ==
LOC: E/R 11:58 → 6WM 21:14
PROVIDERS: ADMIT Internal Medicine; ATTEND Internal Medicine
DX: A41.9 Sepsis, unspecified organism (principal); N30.00 Acute cystitis without hematuria; N10 Acute pyelonephritis; E86.0 Dehydration; D64.9 Anemia, unspecified; E86.1 Hypovolemia; E66.9 Obesity, unspecified; Z68.27 Body mass index [BMI] 27.0-27.9, adult; R65.20 Severe sepsis without septic shock
CPT/HCPCS: 71045; 80053; 81001; 81003; 81025; 83036; 83605; 83735; 84145; 84443; 84484; 85025; 85610; 85730; 87086; 87880; 93005; 96374; J0696; J7030; J7040